=== PATIENT | female | born 2005 | race Caucasian/White ===

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

== ENCOUNTER → 2025-02-18 | Outpatient (CLI) | payer OTHER ==
[~2025-02-18] MED LIST changes: +IBUP800 PO; +Robaxin750 MG PO
[2025-02-18 11:59] LABS: BASOPHILS ABSOLUTE AUTO 0.04 K/mm3 (0.00-0.23); BASOPHILS PERCENT AUTO 1 % (0-2); EOSINOPHILS ABSOLUTE AUTO 0.06 K/mm3 (0.00-0.68); EOSINOPHILS PERCENT AUTO 1 % (0-6); Hematocrit 43.0 % (33.0-51.0); Hemoglobin 14.6 g/dL (11.5-16.0); IMMATURE GRAN ABSOLUTE AUTO 0.01 K/mm3 (0.00-0.10); IMMATURE GRAN PERCENT AUTO 0 % (0-1); LYMPHOCYTES ABSOLUTE AUTO 2.00 K/mm3 (0.84-5.20); LYMPHOCYTES PERCENT AUTO 30 % (21-46); MONOCYTES ABSOLUTE AUTO 0.49 K/mm3 (0.16-1.47); MONOCYTES PERCENT AUTO 7 % (4-13); Mean Corpuscular HGB Conc 34.0 g/dL (31.5-36.5); Mean Corpuscular Volume 89 fL (80-100); NEUTROPHILS ABSOLUTE AUTO 4.01 K/mm3 (1.96-9.15); NEUTROPHILS PERCENT AUTO 61 % (41-73); NRBC ABSOLUTE 0.00 K/mm3 (0.00-0.02); NRBC Auto 0.0 /100 WBC (0.0-0.2); Platelet Count 224 K/mm3 (150-400); RDW Coefficient Variation 12.3 % (11.7-14.2); RDW Standard Deviation 40.0 fL (35.1-46.3)
[2025-02-18 12:21] LABS: Alanine Aminotransfer (ALT/SGP 28.0 U/L (12-78); Albumin, Blood 4.5 g/dL (3.4-5.0); Albumin/Globulin Ratio 1.3 (0.8-1.8); Anion Gap 14.0 mmol/L (3-11); Aspartate Aminotrans (AST/SGOT 20.0 U/L (12-37); Bilirubin, Total 0.8 mg/dL (0.1-1.0); Blood Urea Nitrogen 7.0 mg/dL (8-21); CO2, Blood 25.0 mmol/L (21-32); Calcium, Blood 9.5 mg/dL (8.5-10.1); Chloride, Blood 106.0 mmol/L (98-108); Creatinine, Blood 0.8 mg/dL (0.40-1.00); Globulin, Blood 3.5 g/dL (2.2-4.0); Glucose, Blood 99.0 mg/dL (70-99); Magnesium, Blood 1.9 mg/dL (1.6-2.4); Potassium, Blood 3.9 mmol/L (3.5-5.5); Sodium, Blood 141.0 mmol/L (136-145); Thyroid Stimulating Hormone 1.098 uIU/mL (0.360-4.800); Total Protein, Blood 8.0 g/dL (6.4-8.2)
== END ==
LOC: LAB SHORT 11:51 → LAB 11:51
PROVIDERS: Chiropractor
DX: R07.89 Other chest pain (principal); R10.13 Epigastric pain; R53.83 Other fatigue; R82.998 Other abnormal findings in urine
CPT/HCPCS: 80053; 83690; 83735; 84443; 84484; 85025; 85379; 87086

== ENCOUNTER → 2025-02-25 | Outpatient (CLI) | payer OTHER ==
[~2025-02-25] MED LIST changes: +ONDA4ODT MM; +Percocet 5-3251 EACH PO; +TAMS.4ER PO
== END ==
LOC: LAB 11:13 → LAB SHORT 11:13
DX: R35.0 Frequency of micturition (principal)
CPT/HCPCS: 87086

== ENCOUNTER 2025-03-11 07:55 | Emergency (ER) | payer OTHER ==
[~2025-03-11] VITALS: Ht 170.2 cm; Wt 77.1 kg
[~2025-03-11 07:55] MED LIST changes: -ONDA4ODT MM; -Percocet 5-3251 EACH PO; -TAMS.4ER PO
[2025-03-11] MEDS ORDERED: Ondansetron HCl 2 MG / ML 2ML Vial IV ONE (08:15)
[2025-03-11] MEDS ORDERED: Ketorolac Tromethamine 15mg Vial IV ONE (08:55)
[2025-03-11 09:04] LABS: BASOPHILS ABSOLUTE AUTO 0.06 K/mm3 (0.00-0.23); BASOPHILS PERCENT AUTO 1 % (0-2); EOSINOPHILS ABSOLUTE AUTO 0.14 K/mm3 (0.00-0.68); EOSINOPHILS PERCENT AUTO 3 % (0-6); Hematocrit 42.7 % (33.0-51.0); Hemoglobin 14.4 g/dL (11.5-16.0); IMMATURE GRAN ABSOLUTE AUTO 0.01 K/mm3 (0.00-0.10); IMMATURE GRAN PERCENT AUTO 0 % (0-1); LYMPHOCYTES ABSOLUTE AUTO 2.16 K/mm3 (0.84-5.20); LYMPHOCYTES PERCENT AUTO 43 % (21-46); MONOCYTES ABSOLUTE AUTO 0.41 K/mm3 (0.16-1.47); MONOCYTES PERCENT AUTO 8 % (4-13); Mean Corpuscular HGB Conc 33.7 g/dL (31.5-36.5); Mean Corpuscular Volume 89 fL (80-100); NEUTROPHILS ABSOLUTE AUTO 2.20 K/mm3 (1.96-9.15); NEUTROPHILS PERCENT AUTO 44 % (41-73); NRBC ABSOLUTE 0.00 K/mm3 (0.00-0.02); NRBC Auto 0.0 /100 WBC (0.0-0.2); Platelet Count 224 K/mm3 (150-400); RDW Coefficient Variation 12.1 % (11.7-14.2); RDW Standard Deviation 39.5 fL (35.1-46.3)
[2025-03-11] MEDS ORDERED: NS 1,000 ML IV SCH (09:05)
[2025-03-11] MEDS ORDERED: HYDROmorphone HCl/Pf 1MG SYR IV ONE (09:05)
[2025-03-11 09:33] LABS: Alanine Aminotransfer (ALT/SGP 48.0 U/L (12-78); Albumin, Blood 4.3 g/dL (3.4-5.0); Albumin/Globulin Ratio 1.3 (0.8-1.8); Anion Gap 13.0 mmol/L (3-11); Aspartate Aminotrans (AST/SGOT 35.0 U/L (12-37); Bilirubin, Total 0.9 mg/dL (0.1-1.0); Blood Urea Nitrogen 9.0 mg/dL (8-21); CO2, Blood 22.0 mmol/L (21-32); Calcium, Blood 9.5 mg/dL (8.5-10.1); Chloride, Blood 107.0 mmol/L (98-108); Creatinine, Blood 0.67 mg/dL (0.40-1.00); Globulin, Blood 3.2 g/dL (2.2-4.0); Glucose, Blood 119.0 mg/dL (70-99); Potassium, Blood 2.9 mmol/L (3.5-5.5); Sodium, Blood 139.0 mmol/L (136-145); Total Protein, Blood 7.5 g/dL (6.4-8.2)
[2025-03-11 10:42] LABS: Source, Urine Clean Catch
[2025-03-11 10:48] LABS: Bilirubin, Urine Neg (Neg); Color, Urine Yellow (P-Yellow); Glucose Qualitative, Urine Neg (Neg); Ketones, Urine 3+ (Neg); Leukocyte Esterase, Urine Neg (Neg); Protein, Urine 2+ (Neg); Specific Gravity, Urine 1.005 (1.003-1.022); Urobilinogen, Urine 1+ (Normal)
[2025-03-11 11:01] LABS: White Blood Cells, Urine 0-2 /hpf (0-5)
[2025-03-11 11:02] LABS: Red Blood Cells, Urine 25-50 /hpf (0-2)
[2025-03-11] MEDS ORDERED: ONDA4ODT MM (11:20)
[2025-03-11] MEDS ORDERED: IBUP800 PO (11:20)
[2025-03-11] MEDS ORDERED: Percocet 5-3251 EACH PO (11:20)
[2025-03-11] MEDS ORDERED: TAMS.4ER PO (11:20)
[2025-03-11 11:55] VITALS: BP 132/70
== END 2025-03-11 12:07 | disposition home or self-care (01) ==
LOC: ER 07:55
PROVIDERS: Emergency Medicine
DX: N13.2 Hydronephrosis with renal and ureteral calculous obstruction (principal); R80.9 Proteinuria, unspecified; E87.6 Hypokalemia; R31.9 Hematuria, unspecified; R11.2 Nausea with vomiting, unspecified; J45.909 Unspecified asthma, uncomplicated; Z88.1 Allergy status to other antibiotic agents; Z91.030 Bee allergy status; Z79.899 Other long term (current) drug therapy
CPT/HCPCS: 74177; 80053; 81001; 83690; 84702; 85025; 96361; 96374-59; 96375; 99284-25; A9270; J1171; J1885; J2405; J7030; Q9967